=== PATIENT | female | born 1990 | race Caucasian/White ===

== ENCOUNTER 2020-01-12 06:14 | Inpatient (IN) | payer MEDICAID ==
[2020-01-12] MEDS ORDERED: cefOXitin 2 GM Vial ONE (06:45)
[2020-01-12] MEDS ORDERED: Celecoxib 200 MG Cap PO ONE (07:00)
[2020-01-12] MEDS ORDERED: Acetaminophen 500 MG Tab PO ONE (07:00)
[2020-01-12] MEDS ORDERED: Scopolamine 1.5 MG Transdermal Patch TOP SCH (07:00)
[2020-01-12] MEDS ORDERED: Dextrose 5%-Lactated Ringers 1,000 ML IV SCH (07:00)
[2020-01-12] MEDS ORDERED: Neostigmine Methylsulfate 1 MG/ML 5 ML Syringe ONE (07:12)
[2020-01-12] MEDS ORDERED: Propofol 200 MG/20 ML SDV ONE (07:12)
[2020-01-12] MEDS ORDERED: Glycopyrrolate 0.2 MG/ML 5 ML MDV ONE (07:12)
[2020-01-12] MEDS ORDERED: Succinylcholine 200 MG/10 ML MDV ONE (07:12)
[2020-01-12] MEDS ORDERED: Rocuronium 50 MG/5 ML Vial ONE (07:12)
[2020-01-12] MEDS ORDERED: Ondansetron 4 MG/2 ML SDV ONE (07:12)
[2020-01-12] MEDS ORDERED: fentaNYL 250 MCG/5 ML SDV ONE ×2 (07:12→09:35)
[2020-01-12] MEDS ORDERED: Dexamethasone 4 MG/ML SDV ONE (07:12)
[2020-01-12] MEDS: cefOXitin 2 GM in Sodium Chloride 0.9% 50 ML IV ONE ×2 (08:00→12:13)
[2020-01-12] MEDS ORDERED: Magnesium Sulfate 3.7 GM in Sodium Chloride 0.9% 100 ML IV SCH (08:30)
[2020-01-12] MEDS ORDERED: Ketamine 500 MG/5 ML MDV IV SCH (08:30)
[2020-01-12] MEDS ORDERED: Ketamine 50 MG in Sodium Chloride 0.9% 49.5 ML IV SCH (08:30)
[2020-01-12] MEDS ORDERED: Lactated Ringers 1,000 ML ONE (09:25)
[2020-01-12] MEDS: hydrOXYzine HCL 100 MG/2 ML SDV IM ONE ×2 (10:32→12:13)
[2020-01-12] MEDS ORDERED: Cyclobenzaprine 10 MG Tab PO PRN (11:44)
[2020-01-12] MEDS ORDERED: Calcium Gluconate 10% 1 GM/10 ML SDV IVPUSH PRN (12:00)
[2020-01-12] MEDS ORDERED: hydrOXYzine HCL 100 MG/2 ML SDV IM PRN (12:00)
[2020-01-12] MEDS ORDERED: Ondansetron 4 MG/2 ML SDV IVPUSH PRN (12:00)
[2020-01-12] MEDS ORDERED: HYDROmorphone 0.5 MG/0.5 ML Syringe IVPUSH PRN (12:00)
[2020-01-12] MEDS ORDERED: Acetaminophen 500 MG Tab PO PRN (12:00)
[2020-01-12] MEDS ORDERED: Labetalol 20 MG/4 ML Syringe IVPUSH PRN (12:00)
[2020-01-12] MEDS ORDERED: HYDROmorphone 1 MG/ML Syringe IV PRN (12:00)
[2020-01-12] MEDS ORDERED: Metoclopramide 10 MG/2 ML SDV IVPUSH PRN (12:00)
[2020-01-12] MEDS ORDERED: diphenhydrAMINE 50 MG/ML SDV IVPUSH PRN (12:00)
[2020-01-12] MEDS: Dextrose 5%-Lactated Ringers 1,000 ML IV SCH ×3 (12:20→22:50)
[2020-01-12] MEDS: cefOXitin 2 GM in Sodium Chloride 0.9% 50 ML IV SCH ×2 (14:32→20:38)
[2020-01-12] MEDS ORDERED: Pantoprazole 40 MG Vial IVPUSH SCH (16:00)
[2020-01-12] MEDS ORDERED: MVI, Adult with Vitamin K 10 ML, Thiamine 200 MG, Chromium/Copper/Mang/Selen/Zn 1 ML in... IV SCH ×4 (16:00)
[2020-01-12] MEDS: Acetaminophen 500 MG Tab PO SCH ×2 (16:31→23:45)
[2020-01-12] MEDS: Heparin Sodium 5,000 Units/ML Vial SUBCUT SCH (18:10)
[2020-01-13] MEDS: cefOXitin 2 GM in Sodium Chloride 0.9% 50 ML IV SCH (01:18)
[2020-01-13] MEDS ORDERED: Iopamidol 612 MG/ML 50 ML SDV PO STA (02:04)
[2020-01-13] MEDS: Heparin Sodium 5,000 Units/ML Vial SUBCUT SCH ×2 (05:38→17:26)
[2020-01-13] MEDS: Dextrose 5%-Lactated Ringers 1,000 ML IV SCH (08:34)
[2020-01-13] MEDS: Celecoxib 200 MG Cap PO SCH ×2 (08:35→20:12)
[2020-01-13] MEDS: Acetaminophen 500 MG Tab PO SCH ×2 (08:35→15:40)
[2020-01-13] MEDS: SCOPOLAMINE PATCH CHECK TOP SCH (08:38)
[2020-01-13] MEDS ORDERED: MVI, Adult with Vitamin K 10 ML, Thiamine 200 MG, Chromium/Copper/Mang/Selen/Zn 1 ML in... IV SCH ×4 (16:00)
[2020-01-13] MEDS ORDERED: Pantoprazole 40 MG Delayed-Release Granules 1 Packet PO SCH (16:00)
[2020-01-14] MEDS: Acetaminophen 500 MG Tab PO SCH ×3 (00:04→08:45)
[2020-01-14] MEDS: Dextrose 5%-Lactated Ringers 1,000 ML IV SCH (01:10)
[2020-01-14] MEDS: Heparin Sodium 5,000 Units/ML Vial SUBCUT SCH (05:36)
[2020-01-14] MEDS: Celecoxib 200 MG Cap PO SCH (08:43)
[2020-01-14] MEDS ORDERED: Cyanocobalamin (Vitamin B12) 1,000 MCG/ML SDV IM ONE (09:00)
[2020-01-14] MEDS ORDERED: Magnesium Hydroxide 400 MG/5 ML Susp 30 ML Cup PO ONE (09:00)
[2020-01-14] MEDS: SCOPOLAMINE PATCH CHECK TOP SCH (10:00)
--- NOTE | 2020-01-14 14:58 | PN ---
DATE OF SERVICE: 01/13/2020 The patient has been afebrile with stable vital signs. No major problems were noted. Upper GI x-ray looked good this morning and will go up to step-2 diet today. She is tolerating oral pain medication exclusively at this point. We will maximize activity and work with pulmonary toilet. She may be ready for discharge home tomorrow. Alan Perla MD /[id number]
--- NOTE | 2020-01-15 09:44 | CR ---
[facility] HISTORY: Postbariatric surgery FINDINGS: Patient swallowed water-soluble contrast. Upright views of the abdomen show no evidence of extravasation or obstruction. There is a surgical drain in the left upper quadrant. IMPRESSION: Status post bariatric surgery No extravasation or obstruction seen
--- NOTE | 2020-01-15 13:02 | DISCH ---
FINAL DIAGNOSES: 1. Morbid obesity. 2. Marked hepatomegaly. 3. Paraesophageal diaphragmatic hernia. 4. Nodular lesion in the left lobe of the liver. ADDITIONAL DIAGNOSES: Obstructive sleep apnea, anxiety and depression. OPERATIVE PROCEDURES: Done on 01/11, diagnostic laparoscopy with: 1. Laparoscopic sleeve gastrectomy. 2. Fabrizio-Cut needle liver biopsy. 3. Repair of paraesophageal diaphragmatic hernia. 4. Partial left hepatic lobectomy. SUMMARY: This is a 29-year-old, presenting with longstanding morbid obesity and increasingly significant comorbidities. After preoperative evaluation and discussion, she wished to proceed with sleeve gastrectomy. This was done on the date of admission with the above-noted procedures done concurrently. The patient did have a roughly 1 to 2 cm nodular lesion in the lateral aspect of the left lobe of the liver and this area was resected with pathology on that is pending. I expect the pathology to be benign, but resection appeared to be appropriate to confirm that and avoid possible complications with problems such as hepatic adenomas. Postoperatively, the patient has had no significant problems. She is tolerating a step 2 diet, and will be sent home on that for 1 month postoperatively. Otherwise, she will be on Celebrex and Tylenol as needed for pain, and she will go home without needing narcotics, and follow up will be with Jamee Stephenson at [facility] on 01/23/2020.
--- NOTE | 2020-01-18 11:28 | OR ---
DATE OF PROCEDURE: 01/12/2020 SURGEON: Alan Perla MD PREOPERATIVE DIAGNOSIS: Morbid obesity. POSTOPERATIVE DIAGNOSES: 1. Morbid obesity. 2. Marked hepatomegaly. 3. Paraesophageal diaphragmatic hernia. 4. A red nodular lesion in the left lobe of liver. OPERATIVE PROCEDURE: Diagnostic laparoscopy with: 1. Laparoscopic sleeve gastrectomy (98206). 2. Fabrizio-Cut needle liver biopsy (86883). 3. Repair of paraesophageal diaphragmatic hernia with mesh (53725). 4. Partial left hepatic lobectomy (09573). ANESTHESIA: General. CATTLE RANCHER: Jamee Stephenson PA-C INDICATIONS FOR PROCEDURE: This is a 29-year-old female presenting with longstanding morbid obesity and increasingly significant comorbidities. After preoperative evaluation and discussion, she wished to proceed with a sleeve gastrectomy. Potential risks of the procedure including bleeding, infection, leaks from the gastric staple line as well as the possibility of cardiopulmonary, septic, or hemorrhagic complications leading to were discussed, and the patient wishes to proceed. DETAILS OF PROCEDURE: The patient was taken to the operating room, and after general endotracheal anesthesia was induced, the patient was placed in a lithotomy position and the abdomen prepped and draped. 15 cm inferior and 5 cm left of the xiphoid process, transverse incision was made. Peritoneal cavity entered under direct vision with an Optiview trocar, inflated to 15 mmHg with CO2. Laparoscope was then inserted and no underlying trocar insertion site injuries were seen. Bilateral transversus abdominis plane blocks were then placed and 5 additional trocars were placed across the upper and mid abdomen. The liver was noted to be, in general, enlarged and some fatty infiltrated. Fabrizio-Cut needle biopsy obtained from left lobe of liver. The patient was also noted to have a roughly 1 to 2 cm nodular lesion in the left lateral aspect of the liver. This was felt to be potentially an adenoma that would be at some risk for bleeding or other complications. Given this, this was resected with laser resection of the left lateral 3rd of the segments II and III. The liver was stapled and that specimen was placed in a specimen bag and retrieved through the left lateral trocar site. The liver was then further retracted anteriorly. The patient was noted to have a moderate- sized paraesophageal diaphragmatic hernia. This was reduced. The peritoneum overlying incised and reflected downward. The crura were then from the esophagus circumferentially and retrocrural repair with 0 Ethibond sutures reinforced with PTFE pledgets was then accomplished. The omentum was then divided away from the greater curvature of the stomach, beginning 2 cm proximal to the pylorus. This extended up to and through the short gastric vessels including the highest and posterior short gastric vessels. Care was taken to skeletonize the left catina of the diaphragm to avoid redundant gastric pouch in that area. Once this was accomplished, the sleeve gastrectomy was accomplished with initially two black and reinforced JESSICA loads. This came underneath the incisura angularis avoiding overtightening in that area and the staple line began 2 cm proximal to the pylorus. Remainder of the staple line was then accomplished with a 32-Spanish tube placed against the lesser curvature of the stomach and finished with a combination of reinforced black and reinforced purple JESSICA loads. The gastric specimen was then delivered from the left lateral trocar site. The gastrectomy staple line was inspected and found to be intact. This was reinforced with fibrin sealant focusing this particularly in the area of the esophagogastric junction and that area reinforced with some omentum being stitched up overlying that region. With the pylorus being compressed, air was then injected in the gastric tube causing the remaining stomach to be distended and no leaks or bleeding was seen from the staple line and the tube then removed. With no further problems noted, a single Romie-Holm drain was taken through the left lateral trocar site and positioned adjacent to the esophagogastric junction, from there up in the splenic fossa. Trocars were then sequentially removed and the peritoneal cavity deflated. Incisions were closed with 4-0 Vicryl skin stitch, which was also used to fix the drain. The patient was taken to the recovery room in satisfactory condition. There were no evident complications. Physician food and beverage assistant manager, Jamee Stephenson, played an essential role in assisting in this case helping to position the patient, retract structures as needed as well as suturing and cutting sutures when indicated. Her presence improved patient safety and decreased the operative time. Alan Perla MD /[id number]
== END 2020-01-14 10:15 | disposition home or self-care (01) | DRG 621 ==
LOC: JP.SDS 06:14 → JP.MS 06:15 → EDSTATUS 12:25
PROVIDERS: ADMIT Surgery; ATTEND Surgery
PROC: 0DB64Z3 Excision of Stomach, Percutaneous Endoscopic Approach, Vertical (ICD-10-PCS; principal; 2020-01-12)
PROC: 0BQT4ZZ Repair Diaphragm, Percutaneous Endoscopic Approach (ICD-10-PCS; 2020-01-12)
PROC: 0FB24ZX Excision of Left Lobe Liver, Percutaneous Endoscopic Approach, Diagnostic (ICD-10-PCS; 2020-01-12)
PROC: 0FB24ZZ Excision of Left Lobe Liver, Percutaneous Endoscopic Approach (ICD-10-PCS; 2020-01-12)
DX: E66.01 Morbid (severe) obesity due to excess calories (principal); R16.0 Hepatomegaly, not elsewhere classified; K44.9 Diaphragmatic hernia without obstruction or gangrene; K76.9 Liver disease, unspecified; Z98.51 Tubal ligation status; F32.9 Major depressive disorder, single episode, unspecified; Z68.42 Body mass index [BMI] 45.0-49.9, adult
CPT/HCPCS: 36415; 74240; 74240-26; 81025; 86850; 86900; 86901; 88307; 88313; 94762; A9270-GY; C9113; J0171; J0330; J0694; J1100; J1644; J2405; J2704; J2710; J2795; J3010; J3410; J3411; J3420; J3475; J3490; J7050; J7120; J7121; Q9967